=== PATIENT | female | born 1995 | race Caucasian/White ===

== ENCOUNTER 2018-01-28 23:03 | Inpatient (IN) | payer OTHER ==
--- NOTE | 2018-01-29 00:15 | History and Physical Report ---
History of Present Illness Chief complaint: vaginal bleeding History of present illness: 22yo 41 weeks presents to L&D complaining of 2 episodes of mild vaginal bleeding yesterday. She reports good movement and no loss of fluid. She is a patient of [facility]. Her GBS is negative. Her has been complicated by obesity. Past History - Obstetrical History : 1 Medications and Allergies Allergies Allergy/AdvReac Type Severity Reaction Status Date / Time No Known Allergies Allergy Unverified 01/15/18 07:29 Home Medications Medication Instructions Recorded Confirmed Last Taken Type Vit-Fe Fumar-FA [ 1 tab PO QDAY 01/28/18 01/28/18 01/27/18 History Vitamin] - Vital Signs Vital signs: Vital Signs Temp Resp 97.3 F L 01/28/18 23:27 01/28/18 23:27 Temp Pulse Resp BP Pulse Ox 97.3 F L 01/28/18 23:27 01/28/18 23:27 - Obstetrical FHR: auscultation normal Cervical Dilatation: 1 Results All other labs normal. Assessment and Plan - Patient Problems (1) 41 weeks gestation of Current Visit: Yes Status: Acute Plan to address problem: 1. Routine labs 2. IVF 3. Prepare for delivery. Route of delivery based on ultrasound findings. If no signs of abruption or previa will proceed to induction of labor. (2) Vaginal bleeding Current Visit: Yes Status: Acute Plan to address problem: No vaginal bleeding noted since admission. Evaluate causes of third trimester bleeding (bloody show vs. previa vs placenta abruption) with ultrasound and observation.
[2018-01-29] MEDS ORDERED: MINERAL OIL PO PRN (00:16)
[2018-01-29 01:50] LABS: Hematocrit 39.3 % (30.3-42.9); Hemoglobin 13.6 gm/dl (10.1-14.3); Mean Corpuscular HGB Conc 35 % (30-34); Mean Corpuscular Hemoglobin 31 pg (28-32); Mean Corpuscular Volume 89 fl (79-97); Platelet Count 151 K/mm3 (140-440); Red Blood Count 4.41 M/mm3 (3.65-5.03); Red Cell Distribution Width 16.9 % (13.2-15.2)
--- NOTE | 2018-01-29 03:56 | Ultrasound Report ---
FINAL REPORT EXAM: US OB > = 14 WEEKS FETUS HISTORY: vaginal bleeding TECHNIQUE: Real-time sonography was performed of the gravid uterus and images are submitted for interpretation. PRIORS: None. FINDINGS: There is a normal-appearing fetus in the uterus in a cephalic presentation. The placenta is posterior fundal and was not well seen. The amniotic fluid index is normal at 10.4 cm. The heart is beating at a rate of 149 beats per minute. Biometric measurements give an estimated gestational age of 38 weeks 6 days. Estimated weight is 3636 grams or 8 pounds and 0 ounces. structures identified include the bilateral kidneys, spine, brain, stomach, kidneys, bladder and diaphragm. IMPRESSION: Single, live intrauterine gestation, estimated gestational age 38 weeks 6 days for an estimated date of confinement of 02/06/2018.
--- NOTE | 2018-01-29 07:40 | Event Note ---
Labor Note 22yo 41 weeks resting comfortably in bed. NST Category I Cervix 1/50/-3/vertex/membranes intact No vaginal bleeding Ultrasound: No previa. No abruption Plan 1. Induction of labor secondary to post-dates 2. Cervidil induction 3. Routine labs, IVF 4. Anticipate
[2018-01-29] MEDS ORDERED: PITOCin/NS 20 UNIT/1000ML DRIP 20 UNITS/1,000 ML BAG IV SCH (08:00)
[2018-01-29] MEDS ORDERED: PITOCin/NS 30 UNIT/500ML 30 UNITS/500 ML BAG IV SCH (08:00)
[2018-01-29] MEDS ORDERED: BRETHINE IVP PRN (08:30)
[2018-01-29] MEDS ORDERED: XYLOCAINE 2% INFILTRATI NR (08:30)
[2018-01-29] MEDS ORDERED: STADOL IV PRN (08:30)
[2018-01-29] MEDS ORDERED: ZOFRAN IV PRN (08:30)
[2018-01-29] MEDS ORDERED: BRETHINE SUB-Q PRN (08:30)
[2018-01-29] MEDS ORDERED: CERVIDIL VG NR (09:00)
--- NOTE | 2018-01-29 20:15 | Event Note ---
Date: 01/29/18 Patient has Cervidil for cervical ripening. Patient denies vaginal bleeding. She reports irregular contractions. She reports good movement. Fern test negative. No lesions noted on careful exam with bright light.
--- NOTE | 2018-01-29 21:34 | Event Note ---
Date: 01/29/18 Cervidil removed. Cervix .
[2018-01-29] MEDS ORDERED: SUBLIMAZE IV ONE (22:18)
[2018-01-29] MEDS: LACTATED RINGERS 1,000 ML IV SCH (22:36)
[2018-01-30] MEDS ORDERED: SUBLIMAZE IV PRN (00:26)
[2018-01-30] MEDS: LACTATED RINGERS 1,000 ML IV SCH ×2 (04:32→09:32)
[2018-01-30] MEDS: SUBLIMAZE IV PRN ×2 (04:34→09:29)
[2018-01-30 07:23] LABS: Alanine Aminotransferase 16 units/L (7-56); Albumin 3.3 g/dL (3.9-5); BUN/Creatinine Ratio 13; Blood Urea Nitrogen 5 mg/dL (7-17); Calcium 8.5 mg/dL (8.4-10.2); Hemolysis Index 1
[2018-01-30] MEDS ORDERED: PITOCin/NS 30 UNIT/500ML 30 UNITS/500 ML BAG IV SCH (08:00)
--- NOTE | 2018-01-30 09:48 | Progress Note ---
Assessment and Plan A: at 41 weeks, 1 day gestation. Pitocin induction of labor. P: Continue Pitocin induction of labor. Continuous EFM. Anticipate vaginal delivery. Subjective - Subjective Date of service: 01/30/18 Principal diagnosis: at 41 weeks, 4 days gestation. Interval history: Patient is having labor induced due to late term (post-dates) at 41 weeks, 1 day gestation. Pt. denies VB or LOF. Patient reports she feels contractions. Patient reports: movement normal, contractions, no new complaints, no loss of fluid, no vaginal bleeding Objective - Vital Signs Vital Signs: Vital Signs - 12hr 01/29/18 01/29/18 01/29/18 21:51 21:56 22:01 Pulse Rate 73 67 67 Respiratory Rate Blood Pressure O2 Sat by Pulse 98 97 98 Oximetry 01/29/18 01/29/18 01/29/18 22:06 22:11 22:16 Pulse Rate 73 66 70 Respiratory Rate Blood Pressure O2 Sat by Pulse 97 97 97 Oximetry 01/29/18 01/29/18 01/29/18 22:21 22:26 22:30 Pulse Rate 74 64 65 Respiratory Rate Blood Pressure 111/64 O2 Sat by Pulse 97 97 Oximetry 01/29/18 01/29/18 01/29/18 22:31 22:36 22:41 Pulse Rate 68 71 71 Respiratory Rate Blood Pressure O2 Sat by Pulse 98 96 94 Oximetry 01/29/18 01/29/18 01/29/18 22:42 22:46 22:47 Pulse Rate 74 71 Respiratory 17 Rate Blood Pressure O2 Sat by Pulse 95 94 Oximetry 01/29/18 01/29/18 01/29/18 22:51 22:53 22:56 Pulse Rate 77 72 78 Respiratory Rate Blood Pressure O2 Sat by Pulse 94 94 95 Oximetry 01/29/18 01/29/18 01/29/18 22:59 23:01 23:05 Pulse Rate 73 74 74 Respiratory Rate Blood Pressure O2 Sat by Pulse 94 94 94 Oximetry 01/29/18 01/29/18 01/29/18 23:06 23:11 23:13 Pulse Rate 72 72 79 Respiratory Rate Blood Pressure O2 Sat by Pulse 95 95 94 Oximetry 01/29/18 01/29/18 01/29/18 23:16 23:21 23:25 Pulse Rate 78 73 71 Respiratory Rate Blood Pressure O2 Sat by Pulse 95 95 94 Oximetry 01/29/18 01/29/18 01/29/18 23:26 23:29 23:31 Pulse Rate 73 73 76 Respiratory Rate Blood Pressure 134/76 O2 Sat by Pulse 95 94 Oximetry 01/29/18 01/29/18 01/29/18 23:32 23:36 23:38 Pulse Rate 74 69 66 Respiratory Rate Blood Pressure O2 Sat by Pulse 94 95 94 Oximetry 01/29/18 01/29/18 01/29/18 23:41 23:46 23:51 Pulse Rate 74 78 70 Respiratory Rate Blood Pressure O2 Sat by Pulse 95 97 97 Oximetry 01/30/18 01/30/18 01/30/18 00:09 00:14 00:19 Pulse Rate 74 73 69 Respiratory Rate Blood Pressure O2 Sat by Pulse 97 98 98 Oximetry 01/30/18 01/30/18 01/30/18 00:24 00:29 00:30 Pulse Rate 72 67 75 Respiratory Rate Blood Pressure 106/59 O2 Sat by Pulse 97 98 Oximetry 01/30/18 01/30/18 01/30/18 00:34 00:39 00:44 Pulse Rate 69 72 70 Respiratory Rate Blood Pressure O2 Sat by Pulse 98 98 94 Oximetry 01/30/18 01/30/18 01/30/18 00:46 00:49 00:51 Pulse Rate 72 75 72 Respiratory Rate Blood Pressure O2 Sat by Pulse 94 95 94 Oximetry 01/30/18 01/30/18 01/30/18 00:54 00:59 01:00 Pulse Rate 72 78 74 Respiratory Rate Blood Pressure O2 Sat by Pulse 95 95 94 Oximetry 01/30/18 01/30/18 01/30/18 01:04 01:09 01:14 Pulse Rate 76 67 67 Respiratory Rate Blood Pressure O2 Sat by Pulse 96 99 100 Oximetry 01/30/18 01/30/18 01/30/18 01:19 01:20 01:24 Pulse Rate 64 81 Respiratory 16 Rate Blood Pressure O2 Sat by Pulse 99 100 Oximetry 01/30/18 01/30/18 01/30/18 01:29 01:30 01:34 Pulse Rate 65 58 L 64 Respiratory Rate Blood Pressure 134/75 O2 Sat by Pulse 100 100 Oximetry 01/30/18 01/30/18 01/30/18 01:39 01:44 01:49 Pulse Rate 63 67 64 Respiratory Rate Blood Pressure O2 Sat by Pulse 99 100 100 Oximetry 01/30/18 01/30/18 01/30/18 01:54 01:59 02:04 Pulse Rate 63 70 71 Respiratory Rate Blood Pressure O2 Sat by Pulse 100 100 100 Oximetry 01/30/18 01/30/18 01/30/18 02:09 02:14 02:19 Pulse Rate 62 63 60 Respiratory Rate Blood Pressure O2 Sat by Pulse 99 99 100 Oximetry 01/30/18 01/30/18 01/30/18 02:24 02:29 02:34 Pulse Rate 80 71 64 Respiratory Rate Blood Pressure 119/75 O2 Sat by Pulse 99 100 99 Oximetry 01/30/18 01/30/18 01/30/18 02:39 02:44 02:49 Pulse Rate 63 65 64 Respiratory Rate Blood Pressure O2 Sat by Pulse 100 100 99 Oximetry 01/30/18 01/30/18 01/30/18 02:54 03:04 03:09 Pulse Rate 70 64 70 Respiratory Rate Blood Pressure O2 Sat by Pulse 99 99 100 Oximetry 01/30/18 01/30/18 01/30/18 03:14 03:19 03:24 Pulse Rate 68 63 65 Respiratory Rate Blood Pressure O2 Sat by Pulse 100 100 100 Oximetry 01/30/18 01/30/18 01/30/18 03:29 03:34 03:39 Pulse Rate 73 65 70 Respiratory Rate Blood Pressure 131/78 O2 Sat by Pulse 100 100 100 Oximetry 01/30/18 01/30/18 01/30/18 03:44 03:49 03:54 Pulse Rate 67 64 69 Respiratory Rate Blood Pressure O2 Sat by Pulse 100 100 100 Oximetry 01/30/18 01/30/18 01/30/18 03:59 04:04 04:09 Pulse Rate 69 70 73 Respiratory Rate Blood Pressure O2 Sat by Pulse 100 100 99 Oximetry 01/30/18 01/30/18 01/30/18 04:14 04:19 04:24 Pulse Rate 67 66 69 Respiratory Rate Blood Pressure O2 Sat by Pulse 100 100 100 Oximetry 01/30/18 01/30/18 01/30/18 04:29 04:30 04:34 Pulse Rate 72 62 66 Respiratory Rate Blood Pressure 164/96 158/97 O2 Sat by Pulse 99 99 Oximetry 09/01/30/18 01/30/18 04:39 04:44 04:49 Pulse Rate 68 68 66 Respiratory Rate Blood Pressure O2 Sat by Pulse 99 99 99 Oximetry 01/30/18 01/30/18 01/30/18 04:54 04:59 05:04 Pulse Rate 72 71 70 Respiratory Rate Blood Pressure O2 Sat by Pulse 99 99 99 Oximetry 01/30/18 01/30/18 01/30/18 05:05 05:09 05:14 Pulse Rate 76 85 79 Respiratory Rate Blood Pressure 141/87 O2 Sat by Pulse 98 99 Oximetry 01/30/18 01/30/18 01/30/18 05:19 05:24 05:29 Pulse Rate 70 67 75 Respiratory Rate Blood Pressure O2 Sat by Pulse 99 99 99 Oximetry 01/30/18 01/30/18 01/30/18 05:34 05:37 05:39 Pulse Rate 73 63 70 Respiratory Rate Blood Pressure 131/65 O2 Sat by Pulse 99 99 Oximetry 01/30/18 01/30/18 01/30/18 05:44 05:49 05:54 Pulse Rate 68 70 73 Respiratory Rate Blood Pressure O2 Sat by Pulse 99 99 99 Oximetry 01/30/18 01/30/18 01/30/18 05:59 06:04 06:07 Pulse Rate 69 82 69 Respiratory Rate Blood Pressure 110/58 O2 Sat by Pulse 99 99 Oximetry 01/30/18 01/30/18 01/30/18 06:09 06:19 06:24 Pulse Rate 70 82 76 Respiratory Rate Blood Pressure O2 Sat by Pulse 99 97 99 Oximetry 01/30/18 01/30/18 01/30/18 06:30 06:35 06:36 Pulse Rate 70 74 70 Respiratory Rate Blood Pressure 130/76 O2 Sat by Pulse 99 99 Oximetry 01/30/18 01/30/18 01/30/18 06:40 06:45 06:50 Pulse Rate 69 71 83 Respiratory Rate Blood Pressure O2 Sat by Pulse 98 98 100 Oximetry 01/30/18 01/30/18 01/30/18 06:55 07:00 07:03 Pulse Rate 73 70 70 Respiratory Rate Blood Pressure O2 Sat by Pulse 97 99 94 Oximetry 01/30/18 01/30/18 01/30/18 07:05 07:10 07:15 Pulse Rate 68 72 72 Respiratory Rate Blood Pressure 131/78 O2 Sat by Pulse 98 98 99 Oximetry 01/30/18 01/30/18 01/30/18 07:20 07:25 07:29 Pulse Rate 75 71 74 Respiratory Rate Blood Pressure O2 Sat by Pulse 98 98 93 Oximetry 01/30/18 01/30/18 01/30/18 07:30 07:35 07:40 Pulse Rate 77 71 76 Respiratory Rate Blood Pressure 137/79 O2 Sat by Pulse 94 99 100 Oximetry 01/30/18 01/30/18 01/30/18 07:56 08:01 08:05 Pulse Rate 69 83 69 Respiratory Rate Blood Pressure 126/65 O2 Sat by Pulse 100 100 Oximetry 01/30/18 01/30/18 01/30/18 08:06 08:11 08:16 Pulse Rate 72 74 71 Respiratory Rate Blood Pressure O2 Sat by Pulse 98 97 97 Oximetry 01/30/18 01/30/18 01/30/18 08:21 08:26 08:31 Pulse Rate 76 64 80 Respiratory Rate Blood Pressure O2 Sat by Pulse 96 96 96 Oximetry 01/30/18 01/30/18 01/30/18 08:36 08:46 08:51 Pulse Rate 72 91 H 72 Respiratory Rate Blood Pressure 138/78 O2 Sat by Pulse 97 97 98 Oximetry 01/30/18 01/30/18 01/30/18 08:56 09:01 09:06 Pulse Rate 77 69 72 Respiratory Rate Blood Pressure O2 Sat by Pulse 100 100 100 Oximetry 01/30/18 01/30/18 01/30/18 09:07 09:11 09:16 Pulse Rate 68 68 76 Respiratory Rate Blood Pressure 139/88 O2 Sat by Pulse 100 100 Oximetry 01/30/18 01/30/18 01/30/18 09:21 09:26 09:31 Pulse Rate 76 76 72 Respiratory Rate Blood Pressure O2 Sat by Pulse 100 100 99 Oximetry 01/30/18 01/30/18 01/30/18 09:35 09:36 09:41 Pulse Rate 70 75 71 Respiratory Rate Blood Pressure 126/77 O2 Sat by Pulse 99 99 Oximetry - Exam Abdomen: Present: normal appearance, soft. Absent: distention, tenderness, guarding, rigidity Uterus: Present: fundal height above umbilicus. Absent: tenderness FHR: category 1 Uterine Contraction Monitor Mode: External Cervical Dilatation: 3 Cervical Effacement Percentage: 50 station: -2 Uterine Contraction Pattern: Irregular Uterine Contraction Intensity: Mild Extremities: normal - Labs Labs: Abnormal Labs 01/29/18 01/30/18 01:15 05:43 MCHC 35 H RDW 16.9 H Sodium 135 L Carbon Dioxide 20 L BUN 5 L Creatinine 0.4 L Glucose 58 L Alkaline Phosphatase 250 H Total Protein 5.6 L Albumin 3.3 L Laboratory Results - last 24 hr 01/29/18 01/30/18 01:15 05:43 Sodium 135 L Potassium 3.9 Chloride 103.8 Carbon Dioxide 20 L Anion Gap 15 BUN 5 L Creatinine 0.4 L Estimated GFR > 60 BUN/Creatinine Ratio 13 Glucose 58 L Calcium 8.5 Total Bilirubin 0.90 AST 22 ALT 16 Alkaline Phosphatase 250 H Total Protein 5.6 L Albumin 3.3 L Albumin/Globulin Ratio 1.4 RPR Nonreactive
[2018-01-30] MEDS ORDERED: NARCAN 2 MG/2 ML IV PRN (12:55)
--- NOTE | 2018-01-30 12:56 | Anesthesia Consultation ---
Anesthesia Consult and Med Hx Date of service: 01/30/18 - Airway Anesthetic Teeth Evaluation: Good, Partials Mental/Hyoid Distance: Adequate Mallampati Class: Class II Intubation Access Assessment: Good - Pulmonary Exam CTA: Yes - Cardiac Exam Cardiac Exam: RRR - Pre-Operative Health Status ASA Pre-Surgery Classification: ASA2 Proposed Anesthetic Plan: Epidural, Spinal - Pulmonary Hx Asthma: No COPD: No Hx Pneumonia: No - Cardiovascular System Hx Hypertension: No - Central Nervous System Hx Seizures: No Hx Psychiatric Problems: No - Endocrine Hx Renal Disease: No Hx End Stage Renal Disease: No Hx Hypothyroidism: No Hx Hyperthyroidism: No - Hematic Hx Anemia: Yes Hx Sickle Cell Disease: No - Other Systems Hx Alcohol Use: No
[2018-01-30] MEDS ORDERED: GARAMYCIN IV SCH (13:15)
[2018-01-30] MEDS ORDERED: NACL 0.9% IV SCH (13:15)
--- NOTE | 2018-01-30 13:33 | Event Note ---
Date: 01/30/18 FHR baseline 150s-160s with moderate variability and accelerations. Mild increase in FHR baseline. Maternal temp. 99.2. Pt. states she notices a mild odor; unable to detect this odor. Orders for Tylenol, Amp and Gent put in for patient and RN notified. MD notified of the above. Will observe closely.
[2018-01-30] MEDS ORDERED: fentaNYL-BUPIV 2 MCG/ML-0.125% 200 MCG/100 ML BAG EPIDURAL SCH (14:00)
[2018-01-30] MEDS ORDERED: TYLENOL PO ONE (14:00)
[2018-01-30] MEDS ORDERED: GARAMYCIN 140 MG in NACL 0.9% 100 ML IV SCH (14:00)
[2018-01-30] MEDS ORDERED: POLYCILLIN/NS 2 GM/100 ML 2 GM/100 ML BAG IV SCH (14:00)
--- NOTE | 2018-01-30 18:00 | Event Note ---
Date: 01/30/18 FHR baseline 145-150 with minimal variability. Occasional early FHR deceleration noted. Occasional late FHR deceleration noted. Pitocin turned off. Contractions have been every 3-4 minutes. Uterus palpates soft between contractions. Oxygen applied per face mask at 10 LPM. Patient positioned in right lateral position. Small acceleration of heart rate noted with repositioning. IV fluid bolus given and SQ terbutaline given. SVE 4/100/-3/ BBOW. Notified Dr. Bales of FHR tracing and interventions taken. section called by Dr. Bales. RN and OR team notified to get patient ready for stat section.
[2018-01-30] MEDS ORDERED: BICITRA ONE (18:28)
[2018-01-30] MEDS ORDERED: REGLAN ONE (18:29)
[2018-01-30] MEDS ORDERED: PEPCID IV ONE ×2 (18:29→19:00)
[2018-01-30] MEDS ORDERED: PITOCin/NS 20 UNIT/1000ML DRIP 20 UNITS/1,000 ML BAG IV SCH ×2 (19:00→21:00)
[2018-01-30] MEDS ORDERED: ANCEF/STERILE WATER 2 GM/20 ML 2 GM/20 ML SYRINGE IV NR (19:00)
[2018-01-30] MEDS ORDERED: REGLAN IV ONE (19:00)
[2018-01-30] MEDS ORDERED: BICITRA PO ONE (19:00)
[2018-01-30] MEDS ORDERED: LACTATED RINGERS 1,000 ML IV SCH (19:00)
[2018-01-30] MEDS ORDERED: WATER FOR IRRIG STERILE IR ONE (19:20)
[2018-01-30] MEDS ORDERED: NACL 0.9% IR ONE (19:20)
[2018-01-30] MEDS ORDERED: XYLOCAINE MPF 2% ONE ×3 (19:28→19:56)
[2018-01-30] MEDS ORDERED: ASTRAMORPH PF 10MG/10ML ONE (19:57)
--- NOTE | 2018-01-30 20:13 | Operative Report ---
Operative Report Operative Report: Date of procedure: 01/30/2018 Pre-operative diagnosis: 1. Intrauterine at 41-1/7 weeks 2. Failed induction of labor 3. Non-reassuring surveillance Post-operative diagnosis: Same with thick meconium fluid Procedure name(s): Primary low transverse section Surgeon: Dima Bales MD Die Setter: None Anesthesia: Spinal anesthesia by Dr. Diaz EBL: 800 mL Findings: A 3875 g male infant Apgars 8 at 1 minute and 9 at 5 minutes. Thick meconium fluid. Normal uterus. Normal tubes and ovaries bilaterally. Procedure: After the patient was prepped and draped in usual sterile fashion, and after satisfactory level of epidural anesthesia was obtained, the skin knife was used to make a transverse skin incision. The incision was excised down to layer of the fascia, which was nicked in the midline and extended laterally using the Bovie cautery. The rectus muscles were dissected off the rectus fascia both superiorly and inferiorly. The rectus bellies in the midline, and the peritoneum was entered under direct visualization. The peritoneal incision was extended superiorly and inferiorly. A bladder flap was created and the bladder blade was then placed. The uterus was scored in a curvilinear linear fashion, entered in the midline revealing thick meconium amniotic fluid. The 's head was delivered onto the surgical field with a vacuum, and the oropharynx and nasopharynx were bulb suctioned. The rest of the 's body was delivered, cord was doubly clamped and cut and the infant was handed to the waiting respiratory team. Cord blood was then obtained. The placenta was manually removed from the uterus, and the uterus removed from its normal anatomical position. After gentle uterine lavage, the incision was inspected and found to be without extensions. It was then closed in 2 layers using 0 Vicryl suture in a running interlocking fashion, the second layer imbricating the first. After good hemostasis was achieved, copious amounts or irrigation was performed, and the gutters were suctioned free of blood and blood clots. Tisseel sealant was sprayed across the uterine incision. The uterus was then returned to its normal anatomical position, and after excellent hemostasis assured, the peritoneum was re-approximated using 3-0 Vicryl suture in a running interlocking fashion, and then the rectus muscles were re- approximated using 3-0 Vicryl suture in a [id number] configuration. The fascia was then re-approximated using 0 Vicryl suture in running interlocking fashion. The subcutaneous layer was made hemostatic using Bovie cautery, the Tisseel sealant was sprayed across the fascial incision and the skin edges re- approximated using 4-0 Vicryl suture in a sub-cuticular fashion. Patient tolerated the procedure well was transported to recovery in stable condition.
[2018-01-30] MEDS ORDERED: TUCKS PAD TP PRN (20:15)
[2018-01-30] MEDS ORDERED: SENOKOT PO PRN (20:15)
[2018-01-30] MEDS ORDERED: MYLICON PO PRN (20:15)
[2018-01-30] MEDS ORDERED: LANSINOH TP PRN (20:15)
[2018-01-30] MEDS ORDERED: NARCAN 0.4 MG/1 ML IV PRN (20:15)
[2018-01-30] MEDS ORDERED: PHENERGAN PR PRN (20:15)
[2018-01-30] MEDS ORDERED: PERCOCET 5/325 PO PRN (20:15)
[2018-01-30] MEDS ORDERED: TYLENOL PO PRN (20:15)
[2018-01-30] MEDS ORDERED: MILK OF MAGNESIA PO PRN (20:15)
[2018-01-30] MEDS ORDERED: D5LR 1,000 ML IV SCH (21:00)
[2018-01-30] MEDS ORDERED: SODIUM CHLORIDE FLUSH SYRINGE 10 ML IV NR (21:00)
[2018-01-31] MEDS: TORADOL IV PRN ×2 (03:21→10:00)
[2018-01-31] MEDS: ANCEF/NS 1 GM/50 ML 1 GM/50 ML BAG IV SCH ×2 (03:40→13:52)
[2018-01-31] MEDS ORDERED: BOOSTRIX IM ONE ×2 (05:00→20:16)
[2018-01-31 08:49] LABS: Hematocrit 32.5 % (30.3-42.9); Hemoglobin 11.1 gm/dl (10.1-14.3)
[2018-01-31] MEDS ORDERED: BENADRYL ONE (09:41)
[2018-01-31] MEDS ORDERED: BENADRYL PO PRN (09:50)
--- NOTE | 2018-01-31 11:22 | Progress Note ---
Assessment and Plan A: /postop day 1 S/P primary low transverse section. P: Remove Vasquez catheter. Gradually advance diet. Encouraged ambulation with assistance. Subjective - Subjective Date of service: 01/31/18 Principal diagnosis: /postop day 1 S/P primary LTCS Interval history: /postop day 1 S/P primary LTCS. Patient is doing well. Patient reports a small amount of lochia. Patient still has Vasquez catheter. She has not yet been out of bed to ambulate. Patient states she is passing gas. Patient denies headache, chest pain, shortness of breath, cough, abdominal pain , leg pain, heavy vaginal bleeding, or swelling. Patient reports: appetite normal, pain well controlled, flatus : doing well Objective - Vital Signs Latest vital signs: Vital Signs Temp Pulse Resp BP BP Pulse Ox 01/31/18 08:25 99.2 F 94 H 18 127/86 97 01/31/18 04:15 99.0 F 94 H 18 120/81 01/31/18 03:21 20 01/30/18 23:15 99.0 F 115 H 18 120/76 01/30/18 21:45 122 H 18 122/66 95 01/30/18 21:30 116 H 24 126/75 95 01/30/18 21:15 112 H 25 H 126/75 95 01/30/18 21:00 105 H 25 H 125/73 95 01/30/18 20:45 112 H 24 124/75 97 01/30/18 20:40 113 H 20 123/70 97 01/30/18 20:35 114 H 24 117/69 98 01/30/18 20:32 99.2 F 116 H 23 115/67 98 01/30/18 18:59 130 H 100 01/30/18 18:54 129 H 100 01/30/18 18:50 131 H 102/58 01/30/18 18:49 138 H 100 01/30/18 18:44 137 H 100 01/30/18 18:39 148 H 100 01/30/18 18:35 134 H 98/52 01/30/18 18:34 136 H 100 01/30/18 18:29 141 H 100 01/30/18 18:24 141 H 100 01/30/18 18:20 148 H 100/51 09/22/18 18:19 151 H 100 01/30/18 18:18 70 L 01/30/18 18:14 149 H 98 01/30/18 18:09 141 H 96 18 18:05 118 H 88/51 01/30/18 18:04 112 H 99 01/30/18 17:59 72 100 01/30/18 17:54 68 99 01/30/18 17:51 66 131/76 01/30/18 17:49 64 99 01/30/18 17:48 78 94 01/30/18 17:44 70 95 22/18 17:39 67 96 01/30/18 17:35 70 122/71 01/30/18 17:34 74 95 01/30/18 17:29 72 95 01/30/18 17:24 72 95 01/30/18 17:20 90 118/67 93 01/30/18 17:19 81 95 01/30/18 17:14 74 98 18 17:09 76 98 18 17:05 82 113/63 18 17:04 83 98 01/30/18 16:59 71 98 01/30/18 16:54 73 98 01/30/18 16:50 71 112/64 01/30/18 16:49 73 98 01/30/18 16:44 72 98 01/30/18 16:39 70 98 01/30/18 16:35 72 115/66 01/30/18 16:34 71 98 01/30/18 16:29 74 98 01/30/18 16:24 72 98 01/30/18 16:20 71 112/64 18 16:19 73 98 01/30/18 16:14 75 98 01/30/18 16:09 69 98 01/30/18 16:05 73 108/61 01/30/18 16:04 72 98 01/30/18 15:59 73 98 01/30/18 15:54 77 97 01/30/18 15:50 72 114/62 22/18 15:49 79 98 22/18 15:44 80 98 22/18 15:42 98.6 F 18 15:39 75 98 01/30/18 15:35 77 106/55 09/22/18 15:34 75 98 18 15:29 74 98 18 15:24 78 98 18 15:20 78 108/55 18 15:19 78 98 18 15:14 81 98 18 15:09 82 98 18 15:05 73 108/58 18 15:04 75 98 18 14:59 76 98 01/30/18 14:54 81 97 18 14:50 77 106/56 18 14:49 79 97 18 14:44 84 97 01/30/18 14:39 85 97 01/30/18 14:35 89 112/60 01/30/18 14:34 88 97 01/30/18 14:29 84 97 01/30/18 14:24 79 97 01/30/18 14:20 77 106/60 01/30/18 14:19 80 97 01/30/18 14:14 84 97 01/30/18 14:09 78 97 01/30/18 14:05 76 115/60 01/30/18 14:04 83 97 18 13:59 79 97 18 13:57 79 94 01/30/18 13:54 83 97 01/30/18 13:50 84 109/56 01/30/18 13:49 86 94 01/30/18 13:48 87 94 01/30/18 13:44 85 97 01/30/18 13:39 89 98 01/30/18 13:35 83 111/58 01/30/18 13:34 81 98 18 13:29 85 98 18 13:24 82 98 18 13:20 88 109/62 01/30/18 13:19 89 99 18 13:16 81 94 18 13:14 88 95 18 13:11 77 94 18 13:09 93 H 97 01/30/18 13:05 87 110/68 01/30/18 13:04 95 H 97 01/30/18 12:59 94 H 97 01/30/18 12:57 80 94 01/30/18 12:54 86 98 01/30/18 12:49 81 100 01/30/18 12:44 77 99 01/30/18 12:39 74 100 01/30/18 12:37 75 152/91 01/30/18 12:34 75 99 01/30/18 12:29 76 99 01/30/18 12:24 79 99 01/30/18 12:19 77 99 01/30/18 12:14 82 99 01/30/18 12:09 79 99 01/30/18 12:07 78 132/83 01/30/18 12:04 81 99 01/30/18 12:00 99.3 F 01/30/18 11:59 79 99 01/30/18 11:54 81 99 01/30/18 11:49 79 99 01/30/18 11:44 81 99 01/30/18 11:39 78 97 01/30/18 11:36 110 H 131/72 01/30/18 11:34 94 H 99 01/30/18 11:29 76 99 01/30/18 11:24 86 99 01/30/18 11:19 88 99 Intake and Output 01/30/18 01/31/18 01/31/18 23:59 07:59 15:59 Intake Total 1006.5 840 Output Total 425 200 Balance 581.5 640 Intake: IV 1006.5 PITOCin/NS 30 UNIT/500ML 6.5 30 units In 500 ml @ Per Protocol IV TITR KYM Rx#: [id number] Oral 480 Intake, Free Water 360 Output: Urine 425 200 Indwelling 50 Indwelling Catheter 200 200 Other: Total, Intake Amount 360 Total, Output Amount 200 200 Estimated Blood Loss 800 - Exam Cardiovascular: Present: Regular rate, Normal S1, Normal S2 Lungs: Present: Clear to auscultation Abdomen: Present: normal appearance, soft, normal bowel sounds. Absent: distention, tenderness, guarding, rigidity Uterus: Present: normal, firm, fundal height below umbilicus. Absent: bogginess , tenderness Extremities: Present: normal. Absent: tenderness, edema Incision: Present: normal, dry (small amount of dried drainage on dressing), intact, dressed
[2018-01-31] MEDS ORDERED: AFLURIA QUAD 2018-2019 SYRINGE IM ONE (12:00)
[2018-01-31] MEDS ORDERED: M-M-R II VACCINE SUB-Q ONE (20:16)
[2018-01-31] MEDS: NORCO 5/325 PO PRN (22:09)
[2018-01-31] MEDS: MOTRIN PO PRN (22:09)
[2018-02-01] MEDS: PRENATAL VITAMIN PO SCH (10:58)
[2018-02-01] MEDS: NORCO 5/325 PO PRN (10:58)
[2018-02-01] MEDS: FEOSOL PO SCH (10:58)
--- NOTE | 2018-02-01 13:58 | Progress Note ---
Assessment and Plan - Patient Problems (1) S/P primary low transverse Current Visit: Yes Status: Acute Plan to address problem: POD 2 - stable Continue routine postop orders Encouraged ambulation, as tolerated Discharge to home 02/02/18 Follow up at [facility] in 1 week for incision check (2) Anemia in puerperium, baby delivered during current episode of care Current Visit: Yes Status: Acute Plan to address problem: Asymptomatic s/p blood transfusion Continue iron therapy Subjective - Subjective Date of service: 02/01/18 Principal diagnosis: POD #2; S/P primary LTCS Patient reports: appetite normal, voiding normally, pain well controlled, flatus , ambulating normally, no dizzy ambulation [place]: doing well Objective - Vital Signs Latest vital signs: Vital Signs Temp Pulse Resp BP BP Pulse Ox 02/01/18 08:10 98.2 F 74 20 128/76 02/01/18 00:50 98.2 F 68 20 119/72 01/31/18 17:32 98.1 F 91 H 18 123/77 01/31/18 16:08 84 95 01/31/18 16:07 98.1 F 83 18 123/77 95 Intake and Output 01/31/18 02/01/18 02/01/18 23:59 07:59 15:59 Intake Total 360 120 120 Output Total 800 Balance -440 120 120 Intake: Oral 360 120 Intake, Free Water 120 Output: Urine 800 Void 800 Other: Total, Intake Amount 360 120 Total, Output Amount 800 # Voids Indwelling Catheter 1 Void 1 1 - Exam Abdomen: Present: normal appearance, soft Vulva: both: normal Uterus: Present: normal, firm, fundal height below umbilicus Extremities: Present: normal Incision: Present: normal, dry, dressed
--- NOTE | 2018-02-01 14:03 | Discharge Summary ---
Providers - Providers Date of Admission: 01/29/18 00:51 Date of discharge: 02/02/18 Attending physician: MUNDO MONCADA MD Primary care physician: MUNDO MONCADA MD Hospitalization Reason for admission: induction of labor, IUP at term Delivery: Procedure: primary low transverse Episiotomy: none Laceration: none Incision: normal, dry, dressed Other procedures: none complications: none Discharge diagnosis: IUP at term delivered [place] baby: male Hospital course: Uncomplicated Condition at discharge: Stable Disposition: [id number] TO HOME OR SELFCARE - Discharge Diagnoses (1) S/P primary low transverse Status: Acute Plan - Discharge Medications Prescriptions: Ferrous Sulfate [Feosol 325 MG tab] 325 mg PO BID #60 tablet HYDROcodone/APAP 5-325 [[place] 5/325] 1 each PO Q6HR PRN #30 tablet PRN Reason: Pain Ibuprofen [Motrin] 800 mg PO Q8HR PRN #30 tablet PRN Reason: Moder Pain Unrelieved By [place] Vit Calc,Iron,Folic [ Vitamins] 1 each PO DAILY #30 tablet - Provider Discharge Summary Activity: routine, no sex for 6 weeks, no heavy lifting 4 weeks, no strenuous exercise Diet: routine Instructions: routine Additional instructions: [] Smoking cessation referral if applicable(refer to patient education folder for contact #) [] Refer to [facility] Booklet Call your doctor immediately for: * Fever > 100.5 * Heavy vaginal bleeding ( >1 pad per hour) * Severe persistent headache * Shortness of breath * Reddened, hot, painful area to leg or breast * Drainage or odor from incision. * Keep incision clean and dry at all times and follow doctor's instructions regarding bathing/showering - Follow up plan Follow up: MUNDO MONCADA MD [Primary Care Provider] - 7 Days (Follow up at [facility] in 1 week for incision check)
[2018-02-02] MEDS: NORCO 5/325 PO PRN ×2 (02:48→11:55)
[2018-02-02] MEDS: MOTRIN PO PRN ×2 (02:48→11:55)
[2018-02-02 08:12] VITALS: BP 127/82
[2018-02-02] MEDS: FEOSOL PO SCH (11:55)
[2018-02-02] MEDS: PRENATAL VITAMIN PO SCH (11:55)
== END 2018-02-02 13:00 | disposition home or self-care (01) | DRG 766 ==
LOC: TRG 23:03 → LD 01-29 00:51 → OB 01-30 22:27
PROVIDERS: ADMIT Obstetrics & Gynecology; ATTEND Obstetrics & Gynecology
PROC: 3E0P7VZ Introduction of Hormone into Female Reproductive, Via Natural or Artificial Opening (ICD-10-PCS; 2018-01-29)
PROC: 10D00Z1 Extraction of Products of Conception, Low, Open Approach (ICD-10-PCS; principal; 2018-01-30)
PROC: 3E0234Z Introduction of Serum, Toxoid and Vaccine into Muscle, Percutaneous Approach (ICD-10-PCS; 2018-01-31)
DX: O48.0 Post-term pregnancy (principal); O61.9 Failed induction of labor, unspecified; O77.0 Labor and delivery complicated by meconium in amniotic fluid; O76 Abnormality in fetal heart rate and rhythm complicating labor and delivery; O67.9 Intrapartum hemorrhage, unspecified; O99.214 Obesity complicating childbirth; E66.9 Obesity, unspecified; Z3A.41 41 weeks gestation of pregnancy; Z37.0 Single live birth; Z68.34 Body mass index [BMI] 34.0-34.9, adult; Z23 Encounter for immunization
CPT/HCPCS: 36415; 59200; 76805; 80053; 85014; 85018; 85027; 86592; 86850; 86900; 86901; 90471; 90686; 90715; 99211; G0463; J0290; J0690; J1200; J1580; J1885; J2274; J2590; J2765; J3010; J3105; J7120; J7121